=== PATIENT | male | born 1965 | race Caucasian/White ===

== ENCOUNTER 2016-11-25 09:47 | Inpatient (IN) | payer OTHER, BC ==
[2016-11-25] VITALS (8 sets, daily range): BP systolic 131–155; BP diastolic 77–98; PULSE 61–93; TEMP 36.7–37.1; O2SAT 92–100; Ht 172.7 cm; Wt 96.4 kg
[~2016-11-25] VITALS: Ht 172.7 cm; Wt 96.4 kg
[~2016-11-25 09:47] MED LIST: CEFAZOLIN 2000 MG/60 ML D5W 60 ML IV SCH; MULTTAB58 PO; OSEL75CA12 PO
[2016-11-25] MEDS ORDERED: SODIUM CHLORIDE 0.9% 1000ML 1,000 ML IV STA (09:54)
[2016-11-25] MEDS: HYDROmorphone INJ 1 MG/ML SYR IV PRN ×3 (10:07→11:10)
--- NOTE | 2016-11-25 10:29 | DIAGNOSTIC IMAGING REPORT ---
CHEST ONE VIEW PORTABLE CLINICAL HISTORY: Trauma. COMPARISON STUDY: Chest radiograph January 09, 2013. FINDINGS: This study is mildly compromise by artifact. There is no pneumothorax or pleural effusion. There is mild enlargement of the cardiac silhouette which is accentuated on this exam. Deformity of the right clavicle is chronic. IMPRESSION: 1. No acute findings identified. 2. Mild enlargement of the cardiac silhouette which is accentuated on this portable AP exam. Electronically signed by: Ranjit Cochran M.D. 11/25/2016 10:27 AM Dictated Date/Time: 11/25/2016 10:25 AM
--- NOTE | 2016-11-25 10:30 | DIAGNOSTIC IMAGING REPORT ---
LEFT FOREARM 2 VIEWS CLINICAL HISTORY: Crushing injury. Deformity. FINDINGS: AP and lateral portable views of the left forearm are obtained. No prior studies are available for comparison at the time of dictation. The skeletal structures are well mineralized. There are horizontally oriented fractures through the midshaft of the radius and ulna. There is ulnar distraction of the distal shafts by approximate 1 shaft length, as well as apex dorsal angulation. There is overriding of the fragments by at least 1.4 cm. Overlying soft tissue edema is noted. The wrist and elbow joints are grossly maintained. IMPRESSION: Distracted, angulated, and minimally overriding fractures through the mid shafts of the left radius and ulna as above with overlying soft tissue edema. Electronically signed by: Cain Pittman M.D. 11/25/2016 10:28 AM Dictated Date/Time: 11/25/2016 10:26 AM
[2016-11-25 10:45] LABS: BUN/CREATININE RATIO 14.6 (10-20); CALCIUM 8.8 mg/dl (8.5-10.1); CREATININE 1.1 mg/dl (0.60-1.40)
[2016-11-25 10:55] LABS: BASO % 0.2 %; BASO ABS # 0.02 K/uL (0-0.2); COMPLETE YES; EOS % 0.9 %; HEMATOCRIT 41.5 % (42-52); IG% 0.4 %; LYMPH % 19.4 %; LYMPH ABS # 1.98 K/uL (1.2-3.4); MEAN CELL VOLUME 82.2 fL (80-100); MEAN CORPUSCULAR HEMOGLOBIN 31.5 pg (25-34); MEAN CORPUSCULAR HGB CONC 38.3 g/dl (32-36); MEAN PLATELET VOLUME 9.3 fL (7.4-10.4); MONO % 6.2 %; NEUT % 72.9 %; PLATELET COUNT 218 K/uL (130-400); RED BLOOD COUNT 5.05 M/uL (4.7-6.1); WHITE BLOOD COUNT 10.22 K/uL (4.8-10.8)
[2016-11-25] MEDS ORDERED: ONDANSETRON INJ 2 MG/ML 2 ML VIAL IV STA (11:31)
[2016-11-25] MEDS ORDERED: SODIUM CHLORIDE 0.9% 1000ML 1,000 ML IV SCH (12:05)
[2016-11-25] MEDS ORDERED: METOCLOPRAMIDE HCL INJ 5 MG/ML 2 ML VIAL IV PRN ×2 (12:15→18:45)
[2016-11-25] MEDS ORDERED: ONDANSETRON INJ 2 MG/ML 2 ML VIAL IV PRN ×3 (12:15→18:45)
[2016-11-25] MEDS ORDERED: HYDROmorphone INJ 2 MG/ML SYR/VIAL IV PRN (12:15)
[2016-11-25] MEDS ORDERED: METOCLOPRAMIDE HCL INJ 5 MG/ML 2 ML VIAL ONE (12:17)
[2016-11-25] MEDS ORDERED: HYDROmorphone INJ 1 MG/ML SYR IV PRN (14:30)
[2016-11-25] MEDS ORDERED: EpHEDrine SULFATE INJ 50 MG/ML AMP IV PRN ×2 (14:30→19:00)
[2016-11-25] MEDS ORDERED: FENTANYL CITRATE INJ 50 MCG/1 ML 2 ML VIAL IV PRN (14:30)
[2016-11-25] MEDS ORDERED: ATROPINE SULFATE 0.1 MG/ML 5ML SYR IV PRN ×2 (14:30→19:00)
--- NOTE | 2016-11-25 14:51 | HISTORY & PHYSICAL EXAMINATION ---
DATE OF ADMISSION: 11/25/2016 CHIEF COMPLAINT: Left arm pain. HISTORY OF PRESENT ILLNESS: The patient is a 51-year-old right hand dominant male who injured his left forearm today while he was trying to change a tire on a tractor trailer. He states the shadia and tire kicked out and the bumper of the tractor trailer came down and landing on his left forearm. He had significant pain and discomfort, was transported to [facility] Emergency Department where x-rays were obtained. He was told that he had a displaced radius and ulnar shaft fractures. He was placed in a splint and we were consulted. He has no history of having arm problems in the past. He has no other complaints. PAST MEDICAL HISTORY: Noncontributory. PAST SURGICAL HISTORY: Includes wisdom tooth extraction. ALLERGIES TO MEDICATIONS: None. CURRENT MEDICATIONS: Include daily multivitamin. SOCIAL HISTORY: The patient denies use of tobacco or illicit drugs. He is active. REVIEW OF SYSTEMS: MUSCULOSKELETAL: Left shoulder pain, other pertinent systems were negative. PHYSICAL EXAMINATION: HEENT: Eyes equal, round and reactive to light. Mucosa is dry, but pink. There is no JVD noted. HEART: Regular rate and rhythm per radial pulse. CHEST: There was no adventitious breath sounds noted. ABDOMEN: Soft, nontender, nondistended. MUSCULOSKELETAL: Examination of the left arm shows the patient to be in a splint. He does have a minimal flexion and extension of his fingers. He is intact to sensation throughout the tips of his fingers, although he does note some paresthesia sensation over the left pinky. He has a good capillary refill. No other abnormalities noted. IMAGING: X-rays reviewed do show that he has a displaced left radius and ulna shaft fractures. PLAN: We talked to him about treatment. We do recommend proceeding with surgical intervention today. He did have breakfast around 7:00 this morning. Due to the crush injury we would recommend proceeding this afternoon for an ORIF of the radial shaft and ulnar shaft fracture. All risks, benefits, alternatives as well as postoperative expectations were discussed with him. 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 All questions were answered, and permits were signed today in the office. We will keep him n.p.o., take him to the OR later this afternoon.
[2016-11-25] MEDS ORDERED: FENTANYL CITRATE INJ 50 MCG/1 ML 2 ML VIAL ONE ×2 (15:16→17:07)
[2016-11-25] MEDS ORDERED: PROPOFOL IV EMULSION 10 MG/ML 20 ML VIAL IV ONE (15:16)
[2016-11-25] MEDS ORDERED: MIDAZOLAM HCL 1 MG/ML 2ML VIAL ONE (15:16)
[2016-11-25] MEDS ORDERED: LIDOCAINE HCL 2% 2 ML VIAL (20MG/ML) ONE (15:16)
--- NOTE | 2016-11-25 15:41 | History & Physical Bridge Note ---
H&P Re-Evaluation Bridge Note: I have examined the patient, reviewed the History & Physical and in the interval since the performance of the History & Physical I have noted the following changes of clinical significance: No changes noted
[2016-11-25] MEDS ORDERED: INFLUENZA ADMINISTRATION CHARGE ONE (16:00)
[2016-11-25] MEDS ORDERED: INFLUENZA VIRUS QUAD VACCINE 0.5 ML SYR IM. ONE (16:00)
--- NOTE | 2016-11-25 16:00 | EMERGENCY ROOM VISIT NOTE ---
History Report prepared by Gabinoibandres: Suresh Bolanos Under the Supervision of: Dr. Lexx Bazzi M.D. First contact with patient: 09:50 Chief Complaint: ARM PAIN Stated Complaint: ARM INJURY History of Present Illness The patient is a 51 year old male who presents to the Emergency Room with complaints of an acute crushing left arm injury that occurred at work earlier today. The patient was working at [employer] when his arm was crushed between a shadia and the bumper of a truck. The arm was pinned for approximately one minute. The injury is localized below the left elbow. The pain associated with his injury is rated 7/10 in severity. The left pinky is numb, but he can otherwise feel his fingers. As per his , the patient's tetanus is up to date. Pt denies LOC, headache, visual changes, neck pain, chest pain, breathing difficulties, nausea, vomiting, abdominal pain, back pain, other extremity pain, weakness, open wounds, active bleeding, or other complaints. Source of History: patient, spouse/significant other Onset: earlier today Position: arm (left) Symptom Intensity: 7/10 Quality: other (crushing injury) Timing: other (acute) Associated Symptoms: + numbness, No back pain, No headache, No neck pain Review of Systems See HPI for pertinent positives and negatives. A total of ten systems were reviewed and were otherwise negative. Past Medical & Surgical Medical Problems: (1) Fracture of radial shaft, with ulna, left, closed (2) Up to date with tetanus vaccination Family History No pertinent family history Social History Smoking Status: Never Smoker Current/Historical Medications Scheduled Multiple Vitamin (Multivitamin), 1 TAB PO DAILY Allergies Coded Allergies: No Known Allergies (Unverified , 01/09/13) Physical Exam Vital Signs Date Time Temp Pulse Resp B/P Pulse Ox O2 Delivery O2 Flow Rate FiO2 11/25/16 11:37 65 20 130/78 11/25/16 11:15 58 141/85 100 Room Air 2.0 11/25/16 10:23 59 11/25/16 10:14 57 16 118/84 99 Nasal Cannula 2.0 11/25/16 10:10 100 Nasal Cannula 2.0 11/25/16 10:10 100 Nasal Cannula 2.0 11/25/16 09:51 37.1 63 18 142/109 96 Room Air Physical Exam GENERAL: Awake, alert, uncomfortable appearing, moderate distress HEAD: Normocephalic, atraumatic. No morales sign. No raccoon eyes. EYES: Normal conjunctiva. PERRL. EARS: External ears normal. Right TM normal. Left TM normal. NOSE: Atraumatic OROPHARYNX: Lips, tongue, and mucosa unremarkable. No erythema or exudate. NECK: Supple, full range of motion No tracheal deviation or JVD. No posterior midline tenderness. No step offs noted. RESPIRATORY: CTA bilaterally CARDIAC: borderline bradycardic rate, normal rhythm. ABDOMEN: Inspection reveals no abnormalities. Soft, non distended. No tenderness to palpation. No hernias. BACK: No midline step offs or tenderness to palpation. Unremarkable. PELVIS: Stable to rock. SKIN: Normal. LYMPH: No adenopathy. MUSCULOSKELETAL: Obvious deformity and swelling of the left mid forearm, abrasion noted but no obvious lacerations or punctures. Subjective tingling in the fifth and first fingers. Difficulty moving second finger secondary to pain. Elbow and proximal left arm are atraumatic. Lower extremities and right upper extremity are atraumatic. NEURO: GCS 15. Normal sensorium. No sensory or motor deficits noted. Medical Decision & Procedures ER Provider Diagnostic Interpretation: X-ray: Per my interpretation, radiologist review. CHEST ONE VIEW PORTABLE CLINICAL HISTORY: Trauma. COMPARISON STUDY: Chest radiograph January 09, 2013. FINDINGS: This study is mildly compromise by artifact. There is no pneumothorax or pleural effusion. There is mild enlargement of the cardiac silhouette which is accentuated on this exam. Deformity of the right clavicle is chronic. IMPRESSION: 1. No acute findings identified. 2. Mild enlargement of the cardiac silhouette which is accentuated on this portable AP exam. Electronically signed by: Ranjit Cochran M.D. 11/25/2016 10:27 AM Dictated Date/Time: 11/25/2016 10:25 AM LEFT FOREARM 2 VIEWS CLINICAL HISTORY: Crushing injury. Deformity. FINDINGS: AP and lateral portable views of the left forearm are obtained. No prior studies are available for comparison at the time of dictation. The skeletal structures are well mineralized. There are horizontally oriented fractures through the midshaft of the radius and ulna. There is ulnar distraction of the distal shafts by approximate 1 shaft length, as well as apex dorsal angulation. There is overriding of the fragments by at least 1.4 cm. Overlying soft tissue edema is noted. The wrist and elbow joints are grossly maintained. IMPRESSION: Distracted, angulated, and minimally overriding fractures through the mid shafts of the left radius and ulna as above with overlying soft tissue edema. Electronically signed by: Cain Pittman M.D. 11/25/2016 10:28 AM Dictated Date/Time: 11/25/2016 10:26 AM Laboratory Results 11/25/16 10:15 Red Blood Count 5.05, Mean Corpuscular Volume 82.2, Mean Corpuscular Hemoglobin 31.5, Mean Corpuscular Hemoglobin Concent 38.3, Mean Platelet Volume 9.3, Neutrophils (%) (Auto) 72.9, Lymphocytes (%) (Auto) 19.4, Monocytes (%) (Auto) 6.2, Eosinophils (%) (Auto) 0.9, Basophils (%) (Auto) 0.2, Neutrophils # (Auto) 7.46, Lymphocytes # (Auto) 1.98, Monocytes # (Auto) 0.63, Eosinophils # (Auto) 0.09, Basophils # (Auto) 0.02 11/25/16 10:15 Test 11/25/16 10:15 White Blood Count 10.22 K/uL (4.8-10.8) Red Blood Count 5.05 M/uL (4.7-6.1) Hemoglobin 15.9 g/dL (14.0-18.0) Hematocrit 41.5 % (42-52) Mean Corpuscular Volume 82.2 fL (80-100) Mean Corpuscular Hemoglobin 31.5 pg (25-34) Mean Corpuscular Hemoglobin Concent 38.3 g/dl (32-36) Platelet Count 218 K/uL (130-400) Mean Platelet Volume 9.3 fL (7.4-10.4) Neutrophils (%) (Auto) 72.9 % Lymphocytes (%) (Auto) 19.4 % Monocytes (%) (Auto) 6.2 % Eosinophils (%) (Auto) 0.9 % Basophils (%) (Auto) 0.2 % Neutrophils # (Auto) 7.46 K/uL (1.4-6.5) Lymphocytes # (Auto) 1.98 K/uL (1.2-3.4) Monocytes # (Auto) 0.63 K/uL (0.11-0.59) Eosinophils # (Auto) 0.09 K/uL (0-0.5) Basophils # (Auto) 0.02 K/uL (0-0.2) RDW Standard Deviation 34.7 fL (36.4-46.3) RDW Coefficient of Variation 11.8 % (11.5-14.5) Immature Granulocyte % (Auto) 0.4 % Immature Granulocyte # (Auto) 0.04 K/uL (0.00-0.02) Anion Gap 11.0 mmol/L (3-11) Est Creatinine Clear Calc Drug Dose 91.4 ml/min Estimated GFR () 90.9 Estimated GFR (Non- 78.4 BUN/Creatinine Ratio 14.6 (10-20) Calcium Level 8.8 mg/dl (8.5-10.1) Total Bilirubin 0.7 mg/dl (0.2-1) Direct Bilirubin 0.2 mg/dl (0-0.2) Aspartate Amino Transf (AST/SGOT) 24 U/L (15-37) Alanine Aminotransferase (ALT/SGPT) 43 U/L (12-78) Alkaline Phosphatase 91 U/L (45-117) Total Creatine Kinase 168 U/L (39-308) Total Protein 7.0 gm/dl (6.4-8.2) Albumin 3.7 gm/dl (3.4-5.0) Laboratory results reviewed by me Medications Administered Medications (Trade) Dose Ordered Sig/Jean Route Start Time Stop Time Status Last Admin Dose Admin Sodium Chloride (Nss 1000ml) 1,000 ml @ 999 mls/hr Q1H1M STAT IV 11/25/16 09:54 11/25/16 10:54 DC 11/25/16 10:07 999 MLS/HR Hydromorphone HCl (Dilaudid Inj) 1 mg Q15M PRN IV 11/25/16 10:00 11/25/16 14:21 DC 11/25/16 11:10 1 MG Ondansetron HCl 4 mg 4 mg NOW STAT IV 11/25/16 11:31 11/25/16 11:32 DC 11/25/16 11:36 4 MG Sodium Chloride (Nss 1000ml) 1,000 ml @ 80 mls/hr [id number] IV 11/25/16 12:05 12/25/16 12:04 11/25/16 13:30 80 MLS/HR Procedure Splinting Indication: fracture. Verbal consent obtained. Risks and benefits were explained with the usual customary discussion. The injured extremity was identified. The patient was prepped and measured for the placement of a Volar short-arm splint. Splint applied in the standard fashion over a layer of webril and secured using an elastic bandage. Set into a position of function. Normal neurovascular status after placement verified by me. The patient tolerated the procedure well and the care of the splint was discussed with the patient/family. No complications. ED Course 0953: The patient was evaluated in room A1. A complete history and physical exam was performed. 0954: NSS 1000 ml @ 999 mls/hr. 1000: Dilaudid 1 mg IV. 1005: Volar splint applied. Please see procedural note above. 1025: Discussed the case with Erick Harrison PA-C, [facility]. The patient will be evaluated.. 1031: Updated the patient and his . They are aware that they will be seen by Ortho. 1205: The patient was evaluated by Ortho. He will be taken to the OR. 1257: The patient is comfortable waiting to be taken to the OR. Medical Decision Prior records reviewed and summarized above. Triage Nursing notes reviewed and agree them. Additional history obtained from patient's . The patient's history was concerning for traumatic injury. Differential diagnosis: Etiologies such as fracture, dislocation, neurovascular compromise, compartment syndrome, soft tissue injury, as well as others were entertained. Physical examination: Consistent with an isolated left forearm injury. ER treatment provided: Normal saline hydration Nothing by mouth Dilaudid Zofran Splint, Ortho-Glass On reassessment the patient felt better. Diagnostics interpreted by me: The labs revealed an unremarkable CBC, CK, and chemistry panel. Imaging studies: Xrays as above. Patient has a significant both bone forearm fracture with swelling. He has some subjective tingling. He has difficulty moving his fingers and has moderate swelling of the forearm. Further management will be necessary. Consultation: A consultation was placed with orthopedics. The case was discussed and diagnostics were reviewed. The patient was evaluated in the ER for further treatment. The patient will be admitted to the operative suite for further intervention. The chart was completed utilizing [employer] Speech voice recognition software. Grammatical errors, random word insertions, pronoun errors, and incomplete sentences are an occasional consequence of this system due to software limitations, ambient noise, and hardware issues. Any formal questions or concerns about the content, text, or information contained within the body of this dictation should be directly addressed to the physician for clarification. Consults Time Called: 1020 Consulting Physician: Erick Harrison PA-C, [facility] Returned Call: [phone]: Discussed the case with Erick Harrison PA-C, [facility]. The patient will be evaluated. Impression Primary Impression: Fx radius/ulna shaft-closed Additional Impression: Crush injury forearm Scribe Attestation The scribe's documentation has been prepared under my direction and personally reviewed by me in its entirety. I confirm that the note above accurately reflects all work, treatment, procedures, and medical decision making performed by me. Departure Information Dispostion Being Evaluated By Surgeon Sae Ramsay M.D. (PCP) Patient Instructions My [facility] Problem Qualifiers
[2016-11-25] MEDS ORDERED: DEXAMETHASONE SOD INJ 4 MG/ML VIAL ONE (16:46)
[2016-11-25] MEDS ORDERED: ONDANSETRON INJ 2 MG/ML 2 ML VIAL ONE (16:46)
[2016-11-25] MEDS ORDERED: HYDROmorphone INJ 2 MG/ML SYR/VIAL ONE (17:00)
[2016-11-25] MEDS ORDERED: BUPIVACAINE 0.25% W/EPI 1:200,000 INJ ONE (18:06)
--- NOTE | 2016-11-25 18:08 | DIAGNOSTIC IMAGING REPORT ---
INTRAOPERATIVE LEFT FOREARM 2 VIEWS CLINICAL HISTORY: Fracture status post internal fixation COMPARISON STUDY: 11/25/2016 FLUOROSCOPY TIME: 36 seconds. 2 intraoperative fluoroscopic spot images are provided for interpretation.. FINDINGS: There is been internal fixation of the previously identified radial ulnar fractures. Each fracture has been fixated with a metallic plate and multiple screws. The alignment appears near-anatomic. IMPRESSION: Intraoperative fluoroscopic spot images demonstrate internally fixated radial and ulnar fractures. Electronically signed by: Alvaro Tobin M.D. 11/25/2016 6:07 PM Dictated Date/Time: 11/25/2016 6:06 PM
[2016-11-25] MEDS ORDERED: BACITRACIN 50,000 UNITS IR ONE (18:24)
[2016-11-25] MEDS ORDERED: OXYCODONE/ACETAMINOPHEN 5-325 TAB PO PRN (18:45)
[2016-11-25] MEDS ORDERED: MoRPHine SULFATE 2 MG/ML CARP IV PRN (18:45)
--- NOTE | 2016-11-25 18:45 | [facility] Post Operative Brief Note ---
Immediate Operative Summary Operative Date Nov 25, 2016. Pre-Operative Diagnosis Radius and Ulnar shaft Fracture Post-Operative Diagnosis Radius and Ulnar shaft Fracture Procedure(s) Performed Open reduction and internal fixation of radius and ulna, left Surgeon Dr Estrada Manager Golf Surgeon(s) Garrett Alexander PA-C Estimated Blood Loss 20ML Findings as above Specimens none Complication(s) None Disposition Recovery Room / PACU
[2016-11-25] MEDS ORDERED: LABETALOL HCL IV 5 MG/ML 20ML IV PRN (19:00)
[2016-11-25] MEDS ORDERED: FLUMAZENIL 0.1 MG/1 ML 10 ML VIAL IV PRN (19:00)
[2016-11-25] MEDS ORDERED: NALOXONE HCL 0.4 MG/1 ML VIAL/CARP IV PRN (19:00)
[2016-11-25] MEDS ORDERED: PROMETHAZINE HCL INJ 12.5 MG in SODIUM CHLORIDE 0.9% 50ML 50 ML IV PRN (19:00)
--- NOTE | 2016-11-25 19:34 | Anesthesiology Progress Note ---
Anesthesia Post Op Note Date & Time Nov 25, 2016 at 19:34 Vital Signs Pain Intensity: 0 Vital Signs Past 12 Hours Date Time Temp Pulse Resp B/P Pulse Ox O2 Delivery O2 Flow Rate FiO2 11/25/16 19:29 91 95 11/25/16 19:29 91 11/25/16 19:28 137/80 11/25/16 19:24 87 16 93 11/25/16 19:24 86 16 11/25/16 19:23 121/82 11/25/16 19:19 79 18 95 11/25/16 19:19 79 18 11/25/16 19:18 131/77 11/25/16 19:14 84 15 11/25/16 19:14 84 15 94 11/25/16 19:13 36.9 90 18 141/87 95 Nasal Cannula 2 11/25/16 19:13 141/87 11/25/16 19:09 82 16 11/25/16 19:09 83 16 96 11/25/16 19:08 87 15 11/25/16 19:08 87 15 136/76 97 11/25/16 19:03 87 15 131/88 96 11/25/16 19:03 89 15 11/25/16 18:58 78 14 107/69 97 11/25/16 18:58 77 14 11/25/16 18:53 79 16 114/68 95 11/25/16 18:53 81 16 11/25/16 18:48 82 16 11/25/16 18:48 83 16 112/67 95 11/25/16 18:43 86 15 11/25/16 18:43 85 15 113/68 95 11/25/16 18:43 36.8 88 16 107/64 94 Mask 10 11/25/16 13:30 Room Air 11/25/16 13:30 36.8 61 16 148/84 96 Room Air 11/25/16 13:30 Room Air 11/25/16 13:02 85 18 125/74 11/25/16 11:37 65 20 130/78 11/25/16 11:15 58 141/85 100 Room Air 2.0 11/25/16 10:23 59 11/25/16 10:14 57 16 118/84 99 Nasal Cannula 2.0 11/25/16 10:10 100 Nasal Cannula 2.0 11/25/16 10:10 100 Nasal Cannula 2.0 11/25/16 09:51 37.1 63 18 142/109 96 Room Air Notes Mental Status: alert / awake / arousable, participated in evaluation Pt Amnestic to Procedure: Yes Nausea / Vomiting: adequately controlled Pain: adequately controlled Airway Patency, RR, SpO2: stable & adequate BP & HR: stable & adequate Hydration State: stable & adequate Anesthetic Complications: no major complications apparent
[2016-11-25] MEDS: D5W AND 1/2NSS + 20MEQ KCL 1,000 ML IV SCH (20:09)
[2016-11-25] MEDS: KETOROLAC TROMETHAMINE 30 MG/ML VIAL IV. SCH (20:09)
[2016-11-25] MEDS ORDERED: NURSING DECISION MEDICATION ORDER SCH (23:30)
[2016-11-26] MEDS: CEFAZOLIN IV 2,000 MG in DEXTROSE 5% 50ML 50 ML IV SCH ×2 (00:39→08:01)
--- NOTE | 2016-11-26 02:20 | OPERATIVE REPORT ---
DATE OF OPERATION: 11/25/2016 PREOPERATIVE DIAGNOSIS: Traumatic left two-bone forearm fracture. POSTOPERATIVE DIAGNOSIS: Same. PROCEDURE: Open reduction internal fixation of the left radius and ulna. SURGEON: Dr. Venkata Estrada. CORPORATE ASSOCIATE: Christiano Richter PA-C, whose assistance was necessary for positioning the arm and helping with instrumentation. ANESTHESIA: General. COMPLICATIONS: None. CONDITION: Stable to PACU. IMPLANTS USED: I used a Synthes 3.5 mm small fragment locking plate. INDICATIONS: Ron is a 51-year-old male who had his left forearm crushed beneath a tractor trailer earlier today. He went to the Emergency Room. Radiographs demonstrated a two-bone forearm fracture. There was significant displacement and decision was made to do open reduction internal fixation. OPERATION AND FINDINGS: On 11/25/2016, he was taken from the ER to the operating room. The operative extremity was identified and signed. He was given a preoperative antibiotic, laid on table in supine position. The left forearm was prepped and draped in sterile fashion, timeout was done, and the patient and operative extremity was properly identified. An incision was made directly over the ulnar fracture first. Dissection was taken down through the fascia and the ulna was exposed. The ulna was lined up anatomically and a 6-hole plate was applied. Four compression screws and 2 locking screws were placed. A Adair approach was then made for the radius. Dissection was taken down through the fascia with care not to disrupt any of the nerves. The radial fracture was identified and lined up anatomically. A 6-hole plate was placed and 4 compression screws were placed and 2 locking screws. This gave great fixation. His forearm was brought through a full range of motion and felt to be stable. Surrounding soft tissues were then injected with 30 mL of 0.25% Marcaine with epinephrine. The tourniquet was deflated and hemostasis was obtained. The incisions were then closed with 2-0 Vicryl suture and a 3-0 nylon suture in a trauma mattress fashion. I was able to get the skin closed. He did have a good radial pulse at the end of the case. He was placed in a trauma splint and a left arm sling. He was then extubated, transferred to a [facility] and taken to the postanesthesia care unit in stable condition. He tolerated the procedure well. I attest to the content of the Intraoperative Record and any orders documented therein. Any exceptio ns are noted below.
[2016-11-26] MEDS: KETOROLAC TROMETHAMINE 30 MG/ML VIAL IV. SCH ×2 (02:22→08:01)
[2016-11-26 03:20] VITALS: BP 145/72; PULSE 80; TEMP 37; O2SAT 92
[2016-11-26] MEDS: D5W AND 1/2NSS + 20MEQ KCL 1,000 ML IV SCH (05:47)
[2016-11-26 07:00] VITALS: BP 130/74; PULSE 76; TEMP 37; O2SAT 92
[2016-11-26] MEDS ORDERED: OXYC-57 PO (08:44)
--- NOTE | 2016-11-26 08:46 | Discharge Instructions ---
Discharge Instructions Admission Reason for Admission: Fracture Of Radial Shaft, With Ulna, Left, Closed Discharge Discharge Diagnosis / Problem: SAME ABOVE Discharge Goals Goal(s): Decrease discomfort, Improve function, Increase independence, Therapeutic intervention Activity Recommendations Activity Limitations: as noted below Lifting Limitations: until after follow-up appointment Exercise/Sports Limitations: until after follow-up appointment Driving or Machine Use: MAY NOT DRIVE UNTIL SEEN FOR FOLLOW-UP . Instructions / Follow-Up Instructions / Follow-Up MEDICATIONS: * Resume previous medications unless instructed otherwise by your surgeon. * Always take pain medication on a full stomach or with food to avoid upset stomach. * Do not drink alcohol or drive while taking narcotics. * Ibuprofen or Tylenol may be taken if narcotic not needed. SPECIAL CARE INSTRUCTIONS: __ None _X_ Keep extremity elevated and iced x 48 hours; apply ice 20-30 minutes 8-10 times/day. May remove at night. _X_ Sling (WEAR TO HELP WITH SUPPORT OF SPLINT) _X_24 hrs/day __ Remove at night __ Shoulder Immobilizer __ 24 hrs/day __ Remove at night _X_ Dressing _X_ Maintain until seen in office, may shower with plastic over site __ Remove dressings in 24-48 hours and then may shower __ Cover incisions with band-aids after showering __ Do not remove steri-strips Call physician if chills or temperature rises above 102 degrees or pain unrelieved by prescribed pain medications at . . Current Hospital Diet Patient's current hospital diet: Regular Diet Discharge Diet Recommended Diet: Regular Diet Fluid Restriction: None Procedures Procedures Performed: Open reduction and internal fixation of radius and ulna, left Pending Studies Studies pending at discharge: no Work Instructions Return To Work: after follow-up Lifting Limitations: NO LIFTING WITH LEFT ARM Medical Emergencies . Who to Call and When: Medical Emergencies: If at any time you feel your situation is an emergency, please call 911 immediately. . Non-Emergent Contact Non-Emergency issues call your: Primary Care Provider Call Non-Emergent contact if: you have a fever, temperature is above 101.5 . "Provider Documentation" section prepared by Arden Richter. VTE Core Measure Inpt VTE Proph given/why not?: SCD's
--- NOTE | 2016-11-26 08:54 | Anesthesiology Progress Note ---
Anesthesia Post Op Note Date & Time Nov 26, 2016 at 08:54 Vital Signs Pain Intensity: 3.0 Vital Signs Past 12 Hours Date Time Temp Pulse Resp B/P Pulse Ox O2 Delivery O2 Flow Rate FiO2 11/26/16 07:25 Room Air 11/26/16 07:00 37.0 76 18 130/74 92 Room Air 11/26/16 03:20 37.0 80 16 145/72 92 Room Air 11/25/16 23:22 37.1 75 16 131/77 92 Room Air 11/25/16 22:36 37.0 93 18 148/82 95 Nasal Cannula 2.0 11/25/16 21:40 36.9 84 16 139/81 97 Nasal Cannula 2.0 Notes Mental Status: alert / awake / arousable, participated in evaluation Pt Amnestic to Procedure: Yes Nausea / Vomiting: adequately controlled Pain: adequately controlled Airway Patency, RR, SpO2: stable & adequate BP & HR: stable & adequate Hydration State: stable & adequate Anesthetic Complications: no major complications apparent
[2016-11-26 08:56] LABS: URINE APPEARANCE CLEAR (CLEAR); URINE BILIRUBIN NEG (NEG); URINE COLOR YELLOW; URINE NITRITE NEG (NEG); URINE PH 5.5 (4.5-7.5); URINE SPECIFIC GRAVITY 1.016 (1.000-1.030); UROBILINOGEN NEG (NEG)
[2016-11-26 09:00] LABS: MANUAL MICROSCOPIC REQUIRED? NO; REVIEW REQ? NO
[2016-11-26 09:33] VITALS: BP 130/74; PULSE 76; TEMP 37; O2SAT 92
--- NOTE | 2016-11-26 12:03 | PROGRESS NOTE ---
DATE: 11/26/2016 DATE: 11/26/2016. CHIEF COMPLAINT: Status post open reduction internal fixation of left 2 bone forearm fracture, postop day #1. PROGRESS: Rashad was seen and examined at bedside today. Overall, he seems to be doing very well. He said he had some soreness in his arm, but it was not too bad. He had no acute events overnight. PHYSICAL EXAMINATION: The splint is clean and dry and he is wearing the sling appropriately. He does have a subtle active range of motion of all his fingers and his thumb. He has a little bit of paresthesias in his hands, mostly in the small finger, but he can feel deep sensation to the whole area. I am able to do almost full passive range of motion of his fingers without much pain. He has soreness, but not excruciating pain down the length of his forearm and he has good capillary refill. No signs of compartment syndrome. IMPRESSION: Status post left 2 bone forearm fracture, postop day #1. PLAN: At this point he is doing fairly well. I talked to him about the signs of compartment syndrome and told him to watch out for them and to give the office a call immediately or come to the Emergency Room if he is having any of those symptoms. We are going to discharge him to home with oral Percocet for pain control. I will see him back in the office in a week to evaluate his progress.
--- NOTE | 2016-11-26 17:07 | DISCHARGE SUMMARY ---
ADMITTING DIAGNOSIS: Left radial and ulnar shaft fractures. SURGERY PERFORMED: ORIF of left radius and ulna. SECONDARY DIAGNOSIS: Noncontributory. HISTORY AND PHYSICAL EXAMINATION: Well documented in the patient's chart. HOSPITAL COURSE: The patient was admitted on 11/25/2016 and underwent an ORIF of his left forearm, tolerated the procedure well and there were no complications. He was then later transferred to the PACU and later to the orthopedic floor for further care. He was given Ancef for antibiotic prophylaxis. On postoperative day 1, his pain was doing better. We did discuss possible think he needed to monitor. Percocet was given for pain control. He was to continue his home multivitamin. We will see him back in the clinic in 1 week or sooner if he has any problems or concerns. FEROZ
== END 2016-11-26 13:44 | disposition home or self-care (01) | DRG 512 ==
LOC: ENRESERVDT → ENRESERVTM → EDBD 09:47 → C.ED 09:47 → OBSVTOIN 12:09 → C.MSW 12:09 → INTOOBSV 12:09 → EDBEDREQ 12:27
PROVIDERS: ADMIT Orthopaedic Surgery; ATTEND Orthopaedic Surgery
PROC: 0PSJ04Z Reposition Left Radius with Internal Fixation Device, Open Approach (ICD-10-PCS; principal; 2016-11-25 09:15)
PROC: 0PSL04Z Reposition Left Ulna with Internal Fixation Device, Open Approach (ICD-10-PCS; principal; 2016-11-25 09:15)
DX: S52.202A Unspecified fracture of shaft of left ulna, initial encounter for closed fracture (principal); S52.302A Unspecified fracture of shaft of left radius, initial encounter for closed fracture; S57.82XA Crushing injury of left forearm, initial encounter; W24.0XXA Contact with lifting devices, not elsewhere classified, initial encounter; Y92.59 Other trade areas as the place of occurrence of the external cause; Y99.0 Civilian activity done for income or pay; E66.9 Obesity, unspecified; Z68.32 Body mass index [BMI] 32.0-32.9, adult; Z23 Encounter for immunization